=== PATIENT | female | born 1970 | race Caucasian/White ===

== ENCOUNTER → 2021-11-01 08:48 | Outpatient (BNVA) | payer OTHER, SELFPAY | PROVIDERS: Visit Provider Nurse Practitioner Family | DX: M54.50 Low back pain, unspecified (principal); R20.2 Paresthesia of skin | CPT/HCPCS: 99212 ==

== ENCOUNTER 2021-12-07 17:53 | Outpatient (REF) | payer OTHER, SELFPAY ==
--- NOTE | ~2021-12-07 | MR_ITS ---
EXAMINATION: MR LUMBAR SPINE WITHOUT CONTRAST CLINICAL INFORMATION: 51-year-old with complaints of low back pain and numbness in the right groin. Paresthesia of skin. COMPARISON: None. TECHNIQUE: MRI of the lumbar spine was obtained using routine sequences without contrast. FINDINGS: CORONAL ALIGNMENT: Slight thoracolumbar dextrocurvature noted. SAGITTAL ALIGNMENT: Normal. LUMBOSACRAL JUNCTION: Normal. VERTEBRAL BODIES: Normal height. DISC SPACES AND ENDPLATES: The intervertebral disc space heights are well maintained throughout the thoracolumbar spine. There is mild disc desiccation at L1-L2, L3-L4, L4-L5 and L5-S1, with mild degrees of anterior marginal spondylosis at these levels. Endplates appear intact. SPINAL CANAL: No abnormal developmental findings. BONE MARROW: No significant marrow-replacing process or bone marrow edema. CONUS MEDULLARIS: Terminates at L1. Morphology and signal is normal. INTRADURAL NERVE ROOTS: Within normal limits. L5-S1: Minor disc bulging with a superimposed very small shallow central disc protrusion with transverse annular fissuring noted with minimal indentation of the ventral thecal sac without neural impingement. No significant facet arthrosis, canal or neural foraminal stenosis. L4-L5: No disc bulge or herniation. Moderate right-sided and [id number] left-sided facet arthropathy noted with mild ligamentum flavum thickening. No spinal canal stenosis. Mild left-sided foraminal narrowing noted without neural impingement. L3-L4: Small left-sided foraminal disc protrusion noted without neural impingement. Minor facet arthrosis noted bilaterally. No canal stenosis. Mild left-sided foraminal narrowing noted. L2-L3: Normal disc contour. Mild left-sided facet arthropathy noted. No canal or neural foraminal stenosis. L1-L2: No disc bulge or herniation. No facet arthrosis, canal or neural foraminal stenosis. PARASPINAL/RETROPERITONEAL: The paravertebral soft tissues appear unremarkable. MR/MR lumbar spine wo con IMPRESSION: 1. Mild multilevel lumbar disc degenerative changes with mild multilevel anterior marginal spondylosis. 2. Small central disc protrusion at L5-S1 without neural impingement and a small left foraminal disc protrusion at L3-L4 without neural impingement. 3. Multilevel bilateral facet arthropathy most apparent on the left at L4-L5. There is mild left-sided foraminal narrowing at L4-L5 and L3-L4 without exiting neural impingement.
--- NOTE | ~2021-12-07 | MR_ITS ---
EXAMINATION: MR HIP WITHOUT CONTRAST, RIGHT CLINICAL INFORMATION: Lower back pain. Groin pain. Numbness. COMPARISON: CT pelvis dated 10/09/2016 and right hip MRI dated 05/16/2016. TECHNIQUE: MRI of the right hip was obtained using routine sequences on a high-field strength magnet. FINDINGS: ACETABULAR LABRUM: Focal fluid signal within the undersurface of the anterosuperior labrum (sagittal image 06/07). Findings could represent normal variation versus a nondisplaced undersurface tear. This appears similar when compared to the prior examination. No new labral tear. ARTICULAR CARTILAGE/BONE: Focal subchondral low T1/high T2 signal with central normal marrow signal in the anterior superior aspect of the femoral head measuring up to 1.5 cm in AP dimension and 1.4 cm in ML dimension. Intact overlying articular cartilage. No stress reaction or fracture. MUSCLES/TENDONS: Mild gluteus medius and gluteus minimus tendinosis. JOINT FLUID/BURSA: Trace fluid and edema within the greater trochanteric bursa consistent mild bursitis. INTRAPELVIC STRUCTURES: Unremarkable. MR/MR hip RT wo con IMPRESSION: 1. Linear fluid signal within the undersurface of the anterosuperior labrum which could represent a nondisplaced undersurface tear versus normal variation and appears unchanged when compared to 2016. No new labral tear. 2. Focus of abnormal signal within the anterosuperior aspect of the femoral head measuring up to 1.5 cm which could represent subacute/chronic avascular necrosis. No associated cortical collapse or fracture. Findings are new when compared to the examination from 2016. 3. Mild gluteus medius and gluteus minimus tendinosis. Mild adjacent greater trochanteric bursitis.
== END 2021-12-07 17:54 | disposition home or self-care (01) ==
LOC: HO.MRI 17:53
PROVIDERS: Visit Provider Nurse Practitioner Family
DX: M54.50 Low back pain, unspecified (principal); R20.2 Paresthesia of skin
CPT/HCPCS: 72148; 73721

== ENCOUNTER 2022-03-05 08:54 | Outpatient (REF) | payer OTHER, SELFPAY ==
--- NOTE | ~2022-03-05 | XR_ITS ---
EXAMINATION: XR HIP, RIGHT CLINICAL INFORMATION: Pain COMPARISON: Previous pelvis x-ray May 2016 and MRI November 2021 TECHNIQUE: Two views of the right hip and one view of the pelvis. FINDINGS: Bone alignment is normal. No fracture or dislocation is seen. Questioned right femoral head AVN on MRI is not appreciated by x-ray. Bones of the pelvis are normal. There are bilateral Essure devices in the pelvis. Soft tissues are otherwise unremarkable. XR/XR hip RT w [id number] IMPRESSION: Unremarkable exam.
== END 2022-03-05 08:55 | disposition home or self-care (01) ==
LOC: HO.HOSX 08:54
PROVIDERS: Visit Provider Physician Assistant
DX: M25.851 Other specified joint disorders, right hip (principal); M87.051 Idiopathic aseptic necrosis of right femur
CPT/HCPCS: 73502; 99202